=== PATIENT | female | born 1990 | race Caucasian/White ===

== ENCOUNTER 2017-03-28 09:22 | Emergency (ER) | payer BC, OTHER ==
[2017-03-28] MEDS ORDERED: SODIUM CHLORIDE 0.9% 1,000 ML IV STA (09:49)
[2017-03-28 10:04] LABS: Basophils % (A) 0 %; Eosinophils # (A) 0.1 k/uL (0-0.7); Eosinophils % (A) 1 %; HCT 37.8 % (34.0-46.0); Lymphocytes # (A) 1.9 k/uL (1.0-4.8); Lymphocytes % (A) 12 %; MCH 29.4 pg (25.0-35.0); MCHC 34.4 g/dL (31.0-37.0); MCV 85.7 fL (80.0-100.0); Mean Platelet Volume 6.8; Monocytes # (A) 0.6 k/uL (0-1.0); Monocytes % (A) 4 %; Neutrophils % (A) 83 %; Platelet Count 273 k/uL (150-450); RBC 4.41 m/uL (3.80-5.40); RDW 14.3 % (11.5-15.5); WBC 15.7 k/uL (3.8-10.6)
[2017-03-28 10:30] LABS: ALT 14 U/L (9-52); AST 20 U/L (14-36); Albumin 4.6 g/dL (3.5-5.0); Alkaline Phosphatase 85 U/L (38-126); Anion Gap 16 mmol/L; Blood Urea Nitrogen 4 mg/dL (7-17); Calcium 10.1 mg/dL (8.4-10.2); Carbon Dioxide 19 mmol/L (22-30); Chloride 105 mmol/L (98-107); Glucose 88 mg/dL (74-99); Potassium 3.8 mmol/L (3.5-5.1); Sodium 140 mmol/L (137-145); Total Bilirubin 0.5 mg/dL (0.2-1.3); Total Protein 7.7 g/dL (6.3-8.2)
--- NOTE | 2017-03-28 10:42 | US ---
EXAMINATION TYPE: US OB <= 14 wk fetus DATE OF EXAM: 03/28/2017 COMPARISON: NONE CLINICAL HISTORY: Pain. Left side pain started last night EXAM PERFORMED: Transabdominal (TA) EXAM MEASUREMENTS: GESTATIONAL AGE / DATING Dates by LMP: (10 weeks/0 days) EDC: 10/24/2017 Dates by Current Scan for: (10 weeks/2 days) EDC: 10/22/2017 MATERNAL ANATOMY Uterus: 13.7 x 7.8 x 6.1 cm Right Ovary: 2.6 x 1.6 x 1.4 cm Left Ovary: 8.2 x 6.8 x 5.5 cm Post CDS / Adnexa: No free fluid Presence of free fluid: no Presence of corpus luteal cyst: no Presence of subchorionic bleed: Yes, 9 mm. GESTATION / SURVEY CRL: 3.4 cm (10 weeks/2 days) MSD: seen, not measured Yolk Sac (normal less than 6mm): Not seen Heart Rate: 167 bpm Rhythm: Normal IUP: Viable IUP Date of LMP: 01/17/2017 Beta HcG (if available): Not available at this time Single live IUP measuring 10 weeks 2 days. Simple appearing cystic lesion seen in left ovary = 7.9 x 6.2 x 4.1 cm IMPRESSION: 1. Single live intrauterine with a sonographic age of 10 weeks and 2 days and estimated da te of delivery of 10/22/2017, concordant with menstrual age. 2. Small subchorionic hemorrhage occupying less than 25% of the gestational sac diameter. 3. Large 7.9 cm left ovarian cystic lesion that may represent a corpus luteum. Flow is seen to the pe riphery of the ovary at this time with no current evidence of ovarian torsion although the size of th is cystic lesion does predispose the patient to ovarian torsion.
[2017-03-28 10:59] LABS: Appearance,Urine Clear (Clear); Bilirubin,Urine Negative (Negative); Blood,Urine Negative (Negative); Color,Urine Colorless; Glucose,Urine (UA) Negative (Negative); Ketones,Urine 1+ (Negative); Leukocyte Esterase,Urine Negative (Negative); Nitrite,Urine Negative (Negative); Protein,Urine Negative (Negative); Specific Gravity,Urine 1.001 (1.001-1.035); Urobilinogen,Urine <2.0 mg/dL (<2.0)
--- NOTE | 2017-03-28 11:28 | ED ---
General Adult HPI - General Chief complaint: Abdominal Pain Stated complaint: Abd Pain-10 weeks preg Time Seen by Provider: 03/28/17 09:48 Source: patient, RN notes reviewed Mode of arrival: ambulatory Limitations: no limitations - History of Present Illness Initial comments: Patient 26-year-old female who is G2, P1 presented to the emergency room today with a chief complaint of increased left-sided flank pain. States that symptoms started yesterday. She doesn't that she's proximate 10 weeks . States has not had ultrasound yet in this . Patient states that she has pain starting yesterday in the afternoon slightly better at this time. Does admit some nausea vomiting. Denies any vaginal bleeding or discharge. Denies any other complaints or symptoms. Patient denies any recent fever, chills, shortness of breath, chest pain, numbness or tingling, dysuria or hematuria, constipation or diarrhea, headaches or visual changes, or any other complaints. - Related Data Home Medications Medication Instructions Recorded Confirmed Ukm-Ioak-Lvhkc Acid 1 cap PO DAILY 03/07/15 03/28/17 [-U Capsule] Allergies Allergy/AdvReac Type Severity Reaction Status Date / Time No Known Allergies Allergy Verified 03/28/17 09:40 Review of Systems ROS Statement: Those systems with pertinent positive or pertinent negative responses have been documented in the HPI. ROS Other: All systems not noted in ROS Statement are negative. Past Medical History Past Medical History: No Reported History Additional Past Medical History / Comment(s): History of PCOS History of Any Multi-Drug Resistant Organisms: None Reported Past Surgical History: No Surgical Hx Reported Additional Past Surgical History / Comment(s): [place] teeth removal Past Anesthesia/Blood Transfusion Reactions: No Reported Reaction Additional Past Anesthesia/Blood Transfusion Reaction / Comment(s): "crying" Past Psychological History: No Psychological Hx Reported Smoking Status: Never smoker Past Alcohol Use History: None Reported Past Drug Use History: None Reported - Past Family History Mother Family Medical History: Diabetes Mellitus General Exam - General Exam Comments Initial Comments: General: The patient is awake and alert, in no distress, and does not appear acutely ill. Eye: Pupils are equal, round and reactive to light, extra-ocular movements are intact. No nystagmus. There is normal conjunctiva bilaterally. No signs of icterus. Ears, nose, mouth and throat: There are moist mucous membranes and no oral lesions. Neck: The neck is supple, there is no tenderness or JVD. Cardiovascular: There is a regular rate and rhythm. No murmur, rub or gallop is appreciated. Respiratory: Lungs are clear to auscultation, respirations are non-labored, breath sounds are equal. No wheezes, stridor, rales, or rhonchi. Gastrointestinal: Soft, non-distended, non-tender abdomen without masses or organomegaly noted. There is no rebound or guarding present. No CVA tenderness. Bowel sounds are unremarkable. Musculoskeletal: Normal ROM, no tenderness. Strength 5/5. Sensation intact. Pulses equal bilaterally 2+. Neurological: A&O x 3. CN II-XII intact, There are no obvious motor or sensory deficits. Coordination appears grossly intact. Speech is normal. Skin: Skin is warm and dry and no rashes or lesions are noted. Psychiatric: Cooperative, appropriate mood & affect, normal judgment. Limitations: no limitations Course Vital Signs 03/28/17 09:31 Temperature 97.6 F Pulse Rate 92 Respiratory 22 Rate Blood Pressure 124/64 O2 Sat by Pulse 98 Oximetry Medical Decision Making - Medical Decision Making Patient also has been reviewed does show small subchorionic bleed. Does show single IUP measuring 10 weeks 2 days. Does show a 7.9 cm cyst on the left side. No evidence for torsion at this time. Patient's labs reviewed to show white count of 15,000. Has had multiple bouts of nausea vomiting. At this times comfortable. States pain is improved. She declined any pain medication. His discussed with attending physician . Patient will be discharged home to follow-up with her CHEMISTRY FACULTY MEMBER. She denies calling office today for an appointment. Advised return if any symptoms increase worsen or for any other concerns. - Lab Data Result diagrams: 03/28/17 09:45 03/28/17 09:45 Lab Results 03/28/17 03/28/17 03/28/17 Range/Units 09:45 09:45 09:45 WBC 15.7 H (3.8-10.6) k/uL RBC 4.41 (3.80-5.40) m/uL Hgb 13.0 (11.4-16.0) gm/dL Hct 37.8 (34.0-46.0) % MCV 85.7 (80.0-100.0) fL MCH 29.4 (25.0-35.0) pg MCHC 34.4 (31.0-37.0) g/dL RDW 14.3 (11.5-15.5) % Plt Count 273 (150-450) k/uL Neutrophils % 83 % Lymphocytes % 12 % Monocytes % 4 % Eosinophils % 1 % Basophils % 0 % Neutrophils # 13.0 H (1.3-7.7) k/uL Lymphocytes # 1.9 (1.0-4.8) k/uL Monocytes # 0.6 (0-1.0) k/uL Eosinophils # 0.1 (0-0.7) k/uL Basophils # 0.0 (0-0.2) k/uL Sodium 140 (137-145) mmol/L Potassium 3.8 (3.5-5.1) mmol/L Chloride 105 (98-107) mmol/L Carbon Dioxide 19 L (22-30) mmol/L Anion Gap 16 mmol/L BUN 4 L (7-17) mg/dL Creatinine 0.40 L (0.52-1.04) mg/dL Est GFR (MDRD) Af Amer >60 (>60 ml/min/1.73 sqM) Est GFR (MDRD) Non-Af >60 (>60 ml/min/1.73 sqM) Glucose 88 (74-99) mg/dL Calcium 10.1 (8.4-10.2) mg/dL Total Bilirubin 0.5 (0.2-1.3) mg/dL AST 20 (14-36) U/L ALT 14 (9-52) U/L Alkaline Phosphatase 85 (38-126) U/L Total Protein 7.7 (6.3-8.2) g/dL Albumin 4.6 (3.5-5.0) g/dL Urine Color Urine Appearance (Clear) Urine pH (5.0-8.0) Ur Specific [place] (1.001-1.035) Urine Protein (Negative) Urine Glucose (UA) (Negative) Urine Ketones (Negative) Urine Blood (Negative) Urine Nitrite (Negative) Urine Bilirubin (Negative) Urine Urobilinogen (<2.0) mg/dL Ur Leukocyte Esterase (Negative) Blood Type O Negative Blood Type Recheck No 03/28/17 Range/Units 10:30 WBC (3.8-10.6) k/uL RBC (3.80-5.40) m/uL Hgb (11.4-16.0) gm/dL Hct (34.0-46.0) % MCV (80.0-100.0) fL MCH (25.0-35.0) pg MCHC (31.0-37.0) g/dL RDW (11.5-15.5) % Plt Count (150-450) k/uL Neutrophils % % Lymphocytes % % Monocytes % % Eosinophils % % Basophils % % Neutrophils # (1.3-7.7) k/uL Lymphocytes # (1.0-4.8) k/uL Monocytes # (0-1.0) k/uL Eosinophils # (0-0.7) k/uL Basophils # (0-0.2) k/uL Sodium (137-145) mmol/L Potassium (3.5-5.1) mmol/L Chloride (98-107) mmol/L Carbon Dioxide (22-30) mmol/L Anion Gap mmol/L BUN (7-17) mg/dL Creatinine (0.52-1.04) mg/dL Est GFR (MDRD) Af Amer (>60 ml/min/1.73 sqM) Est GFR (MDRD) Non-Af (>60 ml/min/1.73 sqM) Glucose (74-99) mg/dL Calcium (8.4-10.2) mg/dL Total Bilirubin (0.2-1.3) mg/dL AST (14-36) U/L ALT (9-52) U/L Alkaline Phosphatase (38-126) U/L Total Protein (6.3-8.2) g/dL Albumin (3.5-5.0) g/dL Urine Color Colorless Urine Appearance Clear (Clear) Urine pH 6.0 (5.0-8.0) Ur Specific [place] 1.001 (1.001-1.035) Urine Protein Negative (Negative) Urine Glucose (UA) Negative (Negative) Urine Ketones 1+ H (Negative) Urine Blood Negative (Negative) Urine Nitrite Negative (Negative) Urine Bilirubin Negative (Negative) Urine Urobilinogen <2.0 (<2.0) mg/dL Ur Leukocyte Esterase Negative (Negative) Blood Type Blood Type Recheck Disposition Clinical Impression: , Left ovarian cyst Disposition: HOME SELF-CARE Condition: Good Instructions: Ovarian Cyst (ED) Additional Instructions: Please use medication as discussed. Please follow-up with CHEMISTRY FACULTY MEMBER/family doctor in the next 2 days. Please return to emergency room if the symptoms increase or worsen or for any other concerns. Referrals: Zacarias Martin MD [Primary Care Provider] - 1-2 days Sravanthi Donis DO [Doctor of Osteopathic Medicine] - 1-2 days Time of Disposition: 11:28
[2017-03-28 11:46] VITALS: BP 120/60; PULSE 77; RESP 18; TEMP 97.2
== END 2017-03-28 11:46 | disposition home or self-care (01) ==
LOC: EC 09:22
DX: O34.81 Maternal care for other abnormalities of pelvic organs, first trimester (principal); O20.8 Other hemorrhage in early pregnancy; O21.9 Vomiting of pregnancy, unspecified; Z3A.10 10 weeks gestation of pregnancy
CPT/HCPCS: 36415; 76801; 80053; 81003; 84702; 85025; 86900; 86901; 87086; 96360; 99284

== ENCOUNTER 2017-10-21 05:47 | Inpatient (IN) | payer BC ==
[2017-10-21] MEDS ORDERED: METHYLERGONOVINE 0.2 MG/ML 1 ML AMP IM PRN (05:55)
[2017-10-21] MEDS ORDERED: CARBOPROST TROMETHAMINE 250 MCG/ML 1 ML AMP IM PRN (05:55)
[2017-10-21] MEDS ORDERED: LIDOCAINE 1% (PF) 10 MG/ML (30 ML SDV) SQ PRN (05:55)
[2017-10-21] MEDS ORDERED: OXYTOCIN 10 UNIT/ML 1 ML VIAL IM PRN (05:55)
[2017-10-21] MEDS ORDERED: TERBUTALINE 1 MG/ML VIAL SQ PRN (05:55)
[2017-10-21] MEDS ORDERED: OXYTOCIN 20 UNITS/1000 ML NS 1,000 ML IV SCH ×2 (06:00→14:36)
[2017-10-21] MEDS: LACTATED RINGERS 1,000 ML IV SCH ×2 (06:11→12:57)
[2017-10-21 06:24] LABS: Basophils # (A) 0.1 k/uL (0-0.2); Basophils % (A) 0 %; Eosinophils # (A) 0.4 k/uL (0-0.7); Eosinophils % (A) 2 %; HCT 34.1 % (34.0-46.0); HGB 11.2 gm/dL (11.4-16.0); Lymphocytes # (A) 3.8 k/uL (1.0-4.8); Lymphocytes % (A) 18 %; MCH 26.6 pg (25.0-35.0); MCHC 32.8 g/dL (31.0-37.0); MCV 81.1 fL (80.0-100.0); Mean Platelet Volume 7.2; Monocytes % (A) 5 %; Neutrophils # (A) 15.5 k/uL (1.3-7.7); Neutrophils % (A) 74 %; Platelet Count 383 k/uL (150-450); RDW 14.6 % (11.5-15.5)
--- NOTE | 2017-10-21 08:23 | P.HPOB ---
History of Present Illness H&P Date: 10/21/17 Chief Complaint: Induction of labor This is a 27-year-old female 2 para 1 with an estimated date of confinement of 10/24/2017, estimated gestational age of 39-4/7 weeks, who presents to labor and delivery for induction of labor. She admits to good movement. She has been having irregular contractions. course is been uncomplicated other than she was diagnosed with a large left ovarian cyst early in the that has been stable. labs: Rubella-immune RPR-nonreactive Antibody screen-negative Hepatitis B surface antigen-negative Quad screen-negative Blood type-O- Group B streptococcus-negative Obstetrical history: . History of 1 vaginal delivery at term. Gynecologic history: No history of sexual transmitted diseases Review of Systems Constitutional: Denies chills, Denies fever Eyes: denies blurred vision, denies pain Cardiovascular: Denies chest pain, Denies shortness of breath Respiratory: Denies cough Genitourinary: Reports pelvic pain, Reports Musculoskeletal: Reports low back pain Integumentary: Denies pruritus, Denies rash Neurological: Denies numbness, Denies weakness Psychiatric: Denies anxiety, Denies depression Past Medical History Past Medical History: No Reported History Additional Past Medical History / Comment(s): History of PCOS History of Any Multi-Drug Resistant Organisms: None Reported Additional Past Surgical History / Comment(s): [place] teeth removal Past Anesthesia/Blood Transfusion Reactions: No Reported Reaction Additional Past Anesthesia/Blood Transfusion Reaction / Comment(s): "crying" Past Psychological History: No Psychological Hx Reported Smoking Status: Never smoker Past Alcohol Use History: None Reported Past Drug Use History: None Reported - Past Family History Mother Family Medical History: Diabetes Mellitus Medications and Allergies Home Medications Medication Instructions Recorded Confirmed Type Lgm-Bedi-Vsznq Acid 1 cap PO DAILY 03/07/15 10/21/17 History [-U Capsule] Allergies Allergy/AdvReac Type Severity Reaction Status Date / Time No Known Allergies Allergy Verified 10/21/17 05:54 Exam Osteopathic Statement: *. No significant issues noted on an osteopathic structural exam other than those noted in the History and Physical/Consult. Vital Signs Temp Pulse Resp BP Pulse Ox 10/21/17 06:00 96.9 F L 91 16 131/82 99 Intake and Output 10/20/17 10/21/17 10/21/17 22:59 06:59 14:59 Other: # Voids 1 Weight 80.286 kg HEENT: Within normal limits Heart: Regular rate and rhythm Lungs: Clear to auscultation bilaterally Abdomen: Cervix: 1-1/2 cm/70%/-2 station heart tones: Reactive Contractions: Irregular Extremities: Negative Homans Results Result Diagrams: 10/21/17 06:10 Abnormal Lab Results - Last 24 Hours (Table) 10/21/17 Range/Units 06:10 WBC 21.0 H (3.8-10.6) k/uL Hgb 11.2 L (11.4-16.0) gm/dL Neutrophils # 15.5 H (1.3-7.7) k/uL Assessment and Plan (1) 39 weeks gestation of Current Visit: Yes Status: Acute Code(s): Z3A.39 - 39 WEEKS GESTATION OF SNOMED Code(s): 79193290 Plan: Proceed with oxytocin induction of labor. Expectant management.
[2017-10-21] MEDS ORDERED: WITCH HAZEL 1 EACH MED..PAD TOPICAL PRN (14:36)
[2017-10-21] MEDS ORDERED: IBUPROFEN 600 MG TAB PO PRN (14:36)
[2017-10-21] MEDS ORDERED: ZOLPIDEM 5 MG TAB PO PRN (14:36)
[2017-10-21] MEDS ORDERED: HYDROCORTISONE 2.5% RECTAL CREAM 30 GM TUBE RECTAL PRN (14:36)
[2017-10-21] MEDS ORDERED: diphenhydrAMINE 25 MG CAP PO PRN (14:36)
[2017-10-21] MEDS ORDERED: ACETAMINOPHEN TAB 325 MG TAB PO PRN (14:36)
[2017-10-21] MEDS ORDERED: diphenhydrAMINE 50 MG/ML 1 ML VIAL IVP PRN ×2 (14:36)
[2017-10-21] MEDS ORDERED: SIMETHICONE 80 MG CHEWABLE PO PRN (14:36)
[2017-10-21] MEDS ORDERED: diphenhydrAMINE 50 MG CAP PO PRN (14:36)
[2017-10-21] MEDS ORDERED: LANOLIN CREAM 5 GM TUBE TOPICAL PRN (14:36)
[2017-10-21] MEDS ORDERED: BENZOCAINE/MENTHOL SPRAY 1 GM/SPRAY AEROSOL TOPICAL PRN (14:36)
--- NOTE | 2017-10-21 17:01 | P.PROBDLV ---
Vaginal Delivery Note - . Vaginal Delivery Note: The patient progressed to complete dilation after oxytocin induction of labor and artificial rupture membranes with clear fluid noted. Once reaching complete dilation, she began pushing. Infant's head came to a crown. With one further push, the 's head delivered across the perineum followed by the anterior shoulder. She was unable to stop pushing and the remainder the easily delivered and was placed on mother's abdomen. A body cord 1 was reduced around the body with delivery. Nose and mouth were bulb suctioned after delivery and cord was clamped and cut. was taken to warmer for evaluation. A viable male is noted with scores of 8 at 1 minute and 9 at 5 minutes and weight of 6 lbs. 3 oz. Placenta delivered shortly thereafter, intact, with a three-vessel cord. Also cord blood was obtained. Uterus contracted well after oxytocin was given and uterine massage was carried out. Inspection of the perineum revealed no lacerations that some small abrasions bilateral periurethrally. Estimated blood loss is approximately 100 mL's. Both mother and infant are in stable condition.
[2017-10-21] MEDS: SENNOSIDES-DOCUSATE SODIUM 1 EACH TAB PO SCH (20:11)
[2017-10-21] MEDS ORDERED: Rhogam IMMUNE GLOBULIN 1,500 UNIT/1 ML IM ONE (20:12)
[2017-10-22 05:57] LABS: Basophils # (A) 0.1 k/uL (0-0.2); Basophils % (A) 0 %; Eosinophils # (A) 0.2 k/uL (0-0.7); Eosinophils % (A) 1 %; HCT 33.4 % (34.0-46.0); HGB 10.7 gm/dL (11.4-16.0); Lymphocytes # (A) 2.2 k/uL (1.0-4.8); Lymphocytes % (A) 9 %; MCH 26.6 pg (25.0-35.0); MCV 82.9 fL (80.0-100.0); Mean Platelet Volume 6.6; Monocytes % (A) 4 %; Neutrophils # (A) 20.1 k/uL (1.3-7.7); Neutrophils % (A) 85 %; Platelet Count 311 k/uL (150-450); RBC 4.03 m/uL (3.80-5.40); RDW 14.9 % (11.5-15.5); WBC 23.6 k/uL (3.8-10.6)
[2017-10-22] MEDS: SENNOSIDES-DOCUSATE SODIUM 1 EACH TAB PO SCH (07:34)
[2017-10-22 07:54] VITALS: BP 106/56; PULSE 66; RESP 18; TEMP 98.4
--- NOTE | 2017-10-22 08:51 | P.DS ---
Providers Date of admission: 10/21/17 05:47 Expected date of discharge: 10/22/17 Attending physician: Sravanthi Donis Primary care physician: Stated None - Discharge Diagnosis(es) (1) 39 weeks gestation of Current Visit: Yes Status: Acute Hospital Course: This is a 27-year-old female 2 para 1 at 39-4/7 weeks who presented for induction of labor. She underwent oxytocin induction of labor and delivered vaginally a viable male with scores of 8 at 1 minute and 9 at 5 minutes and infant weight of 6 lbs. 3 oz. Her course has been uncomplicated. Lochia is decreasing. She is not taking anything for pain. Vital signs are stable. Abdomen is soft with fundus firm and nontender. Extremities show negative Homans. Impression is status post vaginal delivery day #1. Plan is to discharge home today. Routine instructions are given. She declines a need for any pain medication. She is bottle feeding. She is advised to follow up in the office in 6 weeks for check. She is advised to call the office if she has any further questions or concerns prior to her appointment time. Procedures: Oxytocin induction of labor Spontaneous vaginal delivery of a viable male infant on 10/21/2017 Patient Condition at Discharge: Stable Plan - Discharge Summary New Discharge Prescriptions: Continue Inc-Voqd-Exhmz Acid [-U Capsule (formulary)] 1 cap PO DAILY Discharge Medication List Lfw-Xkzg-Ymlfg Acid [-U Capsule (formulary)] 1 cap PO DAILY 02/08 [History] Follow up Appointment(s)/Referral(s): Sravanthi Donis DO [Doctor of Osteopathic Medicine] - 6 Weeks Activity/Diet/Wound Care/Special Instructions: Instructions 1. Do not begin any exercise program for 3 weeks. 2. Do not resume sexual relations for 3 weeks or longer if uncomfortable. 3. You may take tub baths or showers at any time. 4. You may use tampons if desired after 3 weeks. 5. Keep the area of episiotomy (stitches) clean and dry. 6. If you are not nursing, wear a good fitting, supportive bra during the day and limit fluid intake for at least 1 week to prevent breast engorgement. 7. Call the office, [phone], within the next week to make appointment for your 6 week checkup if it has not already been made. 8. Report any of the following occurrences to the doctor promptly: a. Heavy, excessive bleeding b. Chills, fever c. Burning or frequency of urination d. Pain or redness and breasts if nursing e. Increasing pain or swelling in episiotomy (stitches). In addition to the above instructions, the following additional should be followed: 1. No heavy lifting or straining (exercising) until after 6 week checkup. 2. Keep abdominal incision clean and dry: You may wear a dressing if more comfortable. 3. Make office appointment for 10 days after going home or as instructed by her doctor. Discharge Disposition: HOME SELF-CARE
== END 2017-10-22 14:49 | disposition home or self-care (01) | DRG 775 ==
LOC: 4FBP 05:47
PROVIDERS: ADMIT Obstetrics & Gynecology; ATTEND Obstetrics & Gynecology
PROC: 10E0XZZ Delivery of Products of Conception, External Approach (ICD-10-PCS; principal; 2017-10-21)
PROC: 10907ZC Drainage of Amniotic Fluid, Therapeutic from Products of Conception, Via Natural or Artificial Opening (ICD-10-PCS; 2017-10-21)
PROC: 3E033VJ Introduction of Other Hormone into Peripheral Vein, Percutaneous Approach (ICD-10-PCS; 2017-10-21)
DX: O34.83 Maternal care for other abnormalities of pelvic organs, third trimester (principal); Z37.0 Single live birth; E28.2 Polycystic ovarian syndrome; Z3A.39 39 weeks gestation of pregnancy; Z83.3 Family history of diabetes mellitus
CPT/HCPCS: 85025; 85461

== ENCOUNTER 2019-08-10 05:58 | Inpatient (IN) | payer OTHER, BC ==
--- NOTE | 2019-08-09 19:12 | P.HPOB ---
History of Present Illness H&P Date: 08/09/19 Chief Complaint: Induction of labor This is a 29 y.o. female, 3, para 2, with an estimated date of confinement of 08/12/2019, estimated gestational age of 39-5/7 weeks, who presents for induction of labor. She has frequent contractions and pressure. She has good movement. has been uncomplicated. labs: Heapatitis B surface antigen-neg RPR-NR Rubella-immune Blood type-O neg Antibody screen-neg Hemoglobin-11.3 Random glucose-78 Quad screen-neg 1 hr. GTT-78 Rhogam-given at 28 weeks GBS-neg OB Hx: . 2 vaginal deliveries Financial Planner Hx: No hx STDs Social Hx: . 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 Review of Systems Constitutional: Denies chills, Denies fever Eyes: denies blurred vision, denies pain Ears, nose, mouth and throat: Denies headache, Denies sore throat Cardiovascular: Denies chest pain, Denies shortness of breath Respiratory: Denies cough Gastrointestinal: Reports abdominal pain (irregular contractions) Genitourinary: Reports pelvic pain, Reports Musculoskeletal: Reports low back pain Integumentary: Denies pruritus, Denies rash Neurological: Denies numbness, Denies weakness Psychiatric: Denies anxiety, Denies depression Past Medical History Past Medical History: No Reported History Additional Past Medical History / Comment(s): History of PCOS History of Any Multi-Drug Resistant Organisms: None Reported Past Surgical History: No Surgical Hx Reported Additional Past Surgical History / Comment(s): [place] teeth removal Past Anesthesia/Blood Transfusion Reactions: No Reported Reaction Additional Past Anesthesia/Blood Transfusion Reaction / Comment(s): "crying" Past Psychological History: No Psychological Hx Reported Smoking Status: Never smoker Past Alcohol Use History: None Reported Past Drug Use History: None Reported - Past Family History Mother Family Medical History: Diabetes Mellitus Medications and Allergies Home Medications Medication Instructions Recorded Confirmed Type Iiw-Ibqi-Ebigx Acid 1 cap PO DAILY 03/07/15 10/21/17 History [-U Capsule (formulary)] Allergies Allergy/AdvReac Type Severity Reaction Status Date / Time No Known Allergies Allergy Verified 10/21/17 05:54 Exam Osteopathic Statement: *. No significant issues noted on an osteopathic structural exam other than those noted in the History and Physical/Consult. HEENT: within normal limits Heart: regular rate and rhythm Lungs: clear to auscultation bilaterally Abdomen: Cervix: 4 cm/70%/-3 heart tones: 140's by doppler Extremities: neg Karla's Assessment and Plan (1) Rh negative status during Status: Acute Code(s): O26.899 - OTH RELATED CONDITIONS, UNSPECIFIED TRIMESTER; Z67.91 - UNSPECIFIED BLOOD TYPE, RH NEGATIVE SNOMED Code(s): 111627214 (2) 39 weeks gestation of Status: Acute Code(s): Z3A.39 - 39 WEEKS GESTATION OF SNOMED Code(s): 82422000 Plan: Proceed with oxytocin induction of labor. Expectant management. Epidural anesthesia if desired.
[2019-08-10] MEDS: LACTATED RINGERS 1,000 ML IV SCH ×2 (06:10→17:06)
[2019-08-10] MEDS ORDERED: OXYTOCIN 30 UNITS/500 ML NS 30 UNIT in SALINE 1 500ML.BAG IV SCH (06:15)
[2019-08-10] MEDS ORDERED: LIDOCAINE 1% (10MG/ML) FOR IV START INTRADERMA PRN (06:15)
[2019-08-10] MEDS ORDERED: METHYLERGONOVINE 0.2 MG/ML 1 ML AMP IM PRN (06:15)
[2019-08-10] MEDS ORDERED: LIDOCAINE 0.5% (PF) 5 MG/ML (50 ML SDV) SQ PRN (06:15)
[2019-08-10] MEDS ORDERED: TERBUTALINE 1 MG/ML VIAL SQ PRN (06:15)
[2019-08-10] MEDS ORDERED: OXYTOCIN 10 UNIT/ML 1 ML VIAL IM PRN (06:15)
[2019-08-10] MEDS ORDERED: CARBOPROST TROMETHAMINE 250 MCG/ML 1 ML AMP IM PRN (06:15)
[2019-08-10 07:58] LABS: Anisocytosis Slight; Basophils % (A) 0 %; Eosinophils # (A) 0.2 k/uL (0-0.7); Eosinophils % (A) 1 %; HCT 32.1 % (34.0-46.0); HGB 10.4 gm/dL (11.4-16.0); Hypochromasia Moderate; Lymphocytes % (A) 14 %; MCH 24.6 pg (25.0-35.0); MCHC 32.3 g/dL (31.0-37.0); MCV 76.1 fL (80.0-100.0); Mean Platelet Volume 7.9; Microcytosis Slight; Monocytes # (A) 0.6 k/uL (0-1.0); Monocytes % (A) 4 %; Neutrophils # (A) 11.5 k/uL (1.3-7.7); Neutrophils % (A) 80 %; Platelet Count 316 k/uL (150-450); RBC 4.22 m/uL (3.80-5.40); RDW 16.2 % (11.5-15.5); WBC 14.4 k/uL (3.8-10.6)
[2019-08-10] MEDS ORDERED: PROPOFOL 10 MG/ML 20 ML VIAL IV ONE (10:41)
[2019-08-10] MEDS ORDERED: ONDANSETRON 4 MG/2 ML VIAL ONE (10:41)
[2019-08-10] MEDS ORDERED: HYDROmorphone (PF) 1 MG/ML ONE (10:41)
[2019-08-10] MEDS ORDERED: DEXAMETHASONE SOD PHOSPHATE 10 MG/ML 1 ML VIAL ONE (10:41)
[2019-08-10] MEDS ORDERED: fentaNYL (PF) 50 MCG/ML 2 ML AMP ONE (10:41)
[2019-08-10] MEDS ORDERED: KETOROLAC 30 MG/ML 1 ML VIAL ONE (10:41)
--- NOTE | 2019-08-10 11:26 | P.OP ---
Date of Procedure: 08/10/19 Preoperative Diagnosis: 1. Intrauterine at 39-5/7 weeks. 2. Cord prolapse. Postoperative Diagnosis: Same Procedure(s) Performed: Primary low transverse section Anesthesia: TRACY Surgeon: Sravanthi Donis Dial Screw Assembler #1: Renetta Diaz Estimated Blood Loss (ml): 200 Pathology: none sent Condition: stable Disposition: floor Indications for Procedure: This is a 29-year-old female 3 para 2 at 39-5/7 weeks who presented for induction of labor. At the start of her labor she was noted to be 5 cm and -2 station. With artificial rupture membranes this morning clear fluid was noted and I kept my hand in place throughout the rupture membranes to make sure the head settled into place. No cord prolapse was noted at that time. As she progressed into labor she became 5-6 cm and when the nurse went to check her she felt a loop of cord in the vagina. She immediately called for help and kept her hand in place to push the head off the cord. When I arrived to the unit, heart tones were still normal I placed my gloved hand into the vagina as a nurse removed hers and palpated to see if there was enough room for the patient to push around the cord prolapse however she was still only noted to be 5-6 and not stretchy enough. The nurse replaced her gloved hand and kept pressure on the head while we rolled the bed to the back for section. I have discussed the risks, benefits, and alternative therapies for the above- mentioned procedure and for both sedation/anesthesia as well as necessary blood products administration, if indicated, as they pertain to this patient. The patient has indicated her understanding and acceptance of the risks and procedures discussed. Operative Findings: A viable male is noted with scores of 8 at 1 minute and 9 at 5 minutes and weight of 7 lbs. 2 oz. No nuchal cord was noted. The loop of cord was next to the head with delivery. Normal uterus and tubes were noted. The left ovary did have a small soft cyst noted. Bovie cautery was used to enter into the cyst and clear fluid was drained. The cyst did resolve. Right ovary appeared normal. Description of Procedure: The patient is taken to the operating room where she is placed in the dorsal supine position with leftward tilt. Nurse continue to stay on the table with her gloved hand in the vagina pushing the head up. She is prepped and draped in the normal sterile fashion. General anesthesia was given. A Pfannenstiel skin incision was made with a scalpel. A second knife was used to carry the incision down to the underlying layer of fascia. The fascia was nicked in the midline with a scalpel and then extended laterally bilaterally with Black scissors. The anterior lip of the fascia was grasped with 2 Osei clamps and then dissected off the underlying rectus muscle in the midline with Black scissors. The inferior aspect of the fascial incision was grasped with 2 Osei clamps and dissected off the underlying rectus muscle and the midline with Black scissors. Next the peritoneum layer was tented up with 2 hemostats and then entered sharply with the scalpel. The incision is extended superiorly and inferiorly with Metzenbaum scissors. Next a DeLee retractor is placed. The vesicouterine peritoneum is entered sharply with Metzenbaum scissors and extended laterally bilaterally with Metzenbaum scissors and then the bladder flap is pushed inferiorly. The lower uterine segment is incised in transverse fashion with the scalpel and then bluntly entered with a hemostat. Clear fluid is noted. The incision was then extended laterally bilaterally with 2 fingers. Next the 's head is delivered through the incision. Nose and mouth are bulb suctioned. The remainder of the infant is easily delivered and placed on mo ther's abdomen. Cord is clamped and cut. Infant is taken to warmer by nursing staff. Cord blood is obtained secondary to Rh- status. Uterine fundus is gently massaged and placenta is delivered manually. Uterus is exteriorized and cleared of all clots and debris. Uterine incision is closed with 0 Vicryl suture in a running locked fashion. A second layer of 0 Vicryl suture is used in a running fashion for hemostasis. Once adequate hemostasis as assured, the vesicouterine peritoneum is reapproximated with 2-0 Vicryl suture in a running fashion. Posterior cul-de-sac is suctioned of all clots and debris. Inspection of the ovaries did show the left ovary did have a approximately 3-4 cm soft simple-appearing cyst. This was opened up with Bovie cautery and clear fluid was drained. Excellent hemostasis was noted. Uterus is returned to the abdomen. Incision is noted to be hemostatic. Peritoneal layer is closed with 0 Vicryl suture in a running fashion. Muscle layer is reapproximated with 0 Vicryl suture in interrupted fashion. Fascia layer is then closed with 0 PDS suture with 2 sutures meeting in the midline and the knots buried in either side and in the midline. The subcutaneous tissue was then closed with 2-0 Vicryl suture. Skin layer was then closed with sue. All sponge and needle counts are correct. The patient is taken to recovery room in stable condition.
[2019-08-10] MEDS ORDERED: HYDROcodone/APAP 5-325MG 1 EACH TAB PO PRN (11:29)
[2019-08-10] MEDS ORDERED: HYDROcodone/APAP 7.5-325MG 1 EACH TAB PO PRN (11:29)
[2019-08-10] MEDS ORDERED: diphenhydrAMINE 50 MG CAP PO PRN ×2 (11:29)
[2019-08-10] MEDS ORDERED: diphenhydrAMINE 50 MG/ML 1 ML VIAL IVP PRN ×4 (11:29)
[2019-08-10] MEDS ORDERED: ACETAMINOPHEN TAB 325 MG TAB PO PRN (11:29)
[2019-08-10] MEDS ORDERED: ZOLPIDEM 5 MG TAB PO PRN (11:29)
[2019-08-10] MEDS ORDERED: OXYTOCIN 20 UNITS/1000 ML NS 1,000 ML IV SCH (11:29)
[2019-08-10] MEDS ORDERED: HYDROCORTISONE 2.5% RECTAL CREAM 30 GM TUBE RECTAL PRN (11:29)
[2019-08-10] MEDS ORDERED: METOCLOPRAMIDE 5 MG/ML 2 ML VIAL IVP PRN (11:29)
[2019-08-10] MEDS ORDERED: NALOXONE 0.4 MG/ML 1 ML VIAL IV PRN (11:29)
[2019-08-10] MEDS ORDERED: KETOROLAC 30 MG/ML 1 ML VIAL IVP PRN (11:29)
[2019-08-10] MEDS ORDERED: WITCH HAZEL 1 EACH MED..PAD TOPICAL PRN (11:29)
[2019-08-10] MEDS ORDERED: LANOLIN CREAM 5 GM TUBE TOPICAL PRN (11:29)
[2019-08-10] MEDS ORDERED: diphenhydrAMINE 25 MG CAP PO PRN ×2 (11:29)
[2019-08-10] MEDS ORDERED: ONDANSETRON 4 MG/2 ML VIAL IVP PRN (11:29)
[2019-08-10] MEDS ORDERED: Rhogam IMMUNE GLOBULIN 1,500 UNIT/1 ML IM ONE (18:59)
[2019-08-10] MEDS: SENNOSIDES-DOCUSATE SODIUM 1 EACH TAB PO SCH (20:29)
[2019-08-11 07:59] LABS: Anisocytosis Slight; Basophils % (A) 0 %; Eosinophils # (A) 0.1 k/uL (0-0.7); Eosinophils % (A) 1 %; HCT 27.1 % (34.0-46.0); Hypochromasia Moderate; Lymphocytes # (A) 2.3 k/uL (1.0-4.8); Lymphocytes % (A) 12 %; MCH 24.2 pg (25.0-35.0); MCHC 31.9 g/dL (31.0-37.0); MCV 76.1 fL (80.0-100.0); Mean Platelet Volume 7.4; Microcytosis Slight; Monocytes # (A) 0.9 k/uL (0-1.0); Monocytes % (A) 5 %; Neutrophils # (A) 15.5 k/uL (1.3-7.7); Neutrophils % (A) 82 %; Platelet Count 295 k/uL (150-450); RBC 3.57 m/uL (3.80-5.40); RDW 16.7 % (11.5-15.5)
[2019-08-11 08:07] LABS: HGB 8.6 gm/dL (11.4-16.0)
[2019-08-11] MEDS: SENNOSIDES-DOCUSATE SODIUM 1 EACH TAB PO SCH ×2 (08:20→20:01)
[2019-08-11] MEDS: IBUPROFEN 600 MG TAB PO PRN ×2 (11:44→20:01)
--- NOTE | 2019-08-11 12:20 | P.PNOBGPC ---
Subjective - Subjective Principal diagnosis: Status post primary section postoperative day #1 Interval history: Patient is doing well. Her pain is fairly well controlled with ibuprofen. She is ambulating the halls. She has urinated. She is bottle feeding. She has not passed flatus or bowel movement yet. Patient reports: Reports appetite normal, Reports voiding normally, Reports pain well controlled, Reports ambulating normally : doing well, bottle feeding Objective - Vital Signs Latest vital signs: Vital Signs Temp Pulse Resp BP Pulse Ox 08/11/19 11:38 98.5 F 101 H 18 118/69 08/11/19 08:00 98.1 F 85 16 110/72 08/11/19 04:00 98.2 F 66 18 102/62 98 08/11/19 00:00 98.5 F 74 16 124/74 98 08/10/19 19:45 98.8 F 74 16 101/61 98 08/10/19 16:00 97.6 F 81 18 122/70 08/10/19 13:30 98.3 F 75 15 118/67 08/10/19 13:00 83 15 141/72 08/10/19 12:30 77 16 128/77 Intake and Output 08/10/19 08/11/19 08/11/19 22:59 06:59 14:59 Intake Total 600 Output Total 2150 600 Balance -2150 0 Intake: Oral 600 Output: Urine 2150 600 Uretheral (Herrera) 1800 Other: # Voids 2 1 - Exam Extremities: Present: normal. Absent: tenderness Abdomen: Present: normal appearance, soft (Faint bowel sounds 4). Absent: tenderness Incision: Present: normal, dry, intact. Absent: erythematous Uterus: Present: normal, firm. Absent: tenderness - Labs Labs: Abnormal Lab Results - Last 24 Hours (Table) 08/11/19 Range/Units 07:24 WBC 19.0 H (3.8-10.6) k/uL RBC 3.57 L (3.80-5.40) m/uL Hgb 8.6 L D (11.4-16.0) gm/dL Hct 27.1 L (34.0-46.0) % MCV 76.1 L (80.0-100.0) fL MCH 24.2 L (25.0-35.0) pg RDW 16.7 H (11.5-15.5) % Neutrophils # 15.5 H (1.3-7.7) k/uL Assessment and Plan Assessment: Status post primary section for cord prolapse postoperative day #1 (1) Rh negative status during Current Visit: No Status: Acute Code(s): O26.899 - OTH RELATED CONDITIONS, UNSPECIFIED TRIMESTER; Z67.91 - UNSPECIFIED BLOOD TYPE, RH NEGATIVE SNOMED Code(s): 286946502 (2) 39 weeks gestation of Current Visit: No Status: Acute Code(s): Z3A.39 - 39 WEEKS GESTATION OF SNOMED Code(s): 06519111 Plan: Continue with postoperative care today. As long as she is passing flatus and her pain is well-controlled, may be able to be discharged tomorrow. Patient is encouraged to ambulate.
[2019-08-11] MEDS: SIMETHICONE 80 MG CHEWABLE PO PRN ×2 (15:35→18:25)
[2019-08-12] MEDS: IBUPROFEN 600 MG TAB PO PRN (04:38)
[2019-08-12 06:19] LABS: Anisocytosis Slight; Basophils % (A) 0 %; Eosinophils # (A) 0.2 k/uL (0-0.7); Eosinophils % (A) 1 %; HCT 28.3 % (34.0-46.0); HGB 9.1 gm/dL (11.4-16.0); Hypochromasia Marked; Lymphocytes # (A) 1.8 k/uL (1.0-4.8); Lymphocytes % (A) 14 %; MCH 24.6 pg (25.0-35.0); MCV 76.9 fL (80.0-100.0); Mean Platelet Volume 6.8; Microcytosis Slight; Monocytes # (A) 0.8 k/uL (0-1.0); Monocytes % (A) 6 %; Neutrophils # (A) 10.2 k/uL (1.3-7.7); Neutrophils % (A) 78 %; Platelet Count 301 k/uL (150-450); RBC 3.68 m/uL (3.80-5.40); RDW 16.6 % (11.5-15.5); WBC 13.2 k/uL (3.8-10.6)
[2019-08-12] MEDS: SENNOSIDES-DOCUSATE SODIUM 1 EACH TAB PO SCH (08:00)
[2019-08-12 08:34] VITALS: BP 121/79; PULSE 115; RESP 20; TEMP 98.2
--- NOTE | 2019-08-12 08:48 | P.DS ---
Providers Date of admission: 08/10/19 05:58 Expected date of discharge: 08/12/19 Attending physician: Sravanthi Donis Primary care physician: Stated None - Discharge Diagnosis(es) (1) Rh negative status during Current Visit: No Status: Acute (2) 39 weeks gestation of Current Visit: No Status: Acute Hospital Course: This is a 29-year-old female 3 para 2 at 39-5/7 weeks who presented for induction of labor. She reached approximate 5-1/2 cm and during a vaginal check was noted to have a cord prolapse. The emergency section was called and she delivered a viable male infant with scores of 8 at 1 minute and 9 at 5 minutes and weight of 7 lbs. 2 oz. on 08/10/2019 via emergency section under general anesthesia. Postoperatively she has done well. Lochia is decreasing. Her pain is well-controlled. She is passing flatus and b owel movement. She is bottle feeding. Vital signs are stable. Abdomen is soft with positive bowel sounds 4. Incision is clean dry and intact with sue in place. Extremities show negative Homans. Impression is status post primary section postoperative day #2. Plan is to discharge home today. Routine postoperative and instructions are given. [place] will be removed and Steri-Strips placed prior to discharge. She will be given a prescription for ibuprofen. She declines any narcotic prescription. She is advised follow-up in the office in 1 week for a postoperative check and in 6 weeks for a check. Procedures: Oxytocin induction of labor Emergency primary low transverse section on 08/10/2019 Patient Condition at Discharge: Stable Plan - Discharge Summary New Discharge Prescriptions: New Ibuprofen [Motrin] 600 mg PO Q6HR PRN #60 tab PRN Reason: Mild Pain Or Fever >= 100.5 Continue Mur-Dqcx-Xbroy Acid [-U Capsule (formulary)] 1 cap PO DAILY Discharge Medication List Oef-Pbdw-Zptuy Acid [-U Capsule (formulary)] 1 cap PO DAILY 03/07/15 [History] Ibuprofen [Motrin] 600 mg PO Q6HR PRN #60 tab 08/12/19 [Rx] Follow up Appointment(s)/Referral(s): Sravanthi Donis DO [Doctor of Osteopathic Medicine] - 1 Week Activity/Diet/Wound Care/Special Instructions: Instructions 1. Do not begin any exercise program for 3 weeks. 2. Do not resume sexual relations for 3 weeks or longer if uncomfortable. 3. You may take tub baths or showers at any time. 4. You may use tampons if desired after 3 weeks. 5. Keep the area of episiotomy (stitches) clean and dry. 6. If you are not nursing, wear a good fitting, supportive bra during the day and limit fluid intake for at least 1 week to prevent breast engorgement. 7. Call the office, [phone], within the next week to make appointment for your 6 week checkup if it has not already been made. 8. Report any of the following occurrences to the doctor promptly: a. Heavy, excessive bleeding b. Chills, fever c. Burning or frequency of urination d. Pain or redness and breasts if nursing e. Increasing pain or swelling in episiotomy (stitches). In addition to the above instructions, the following additional should be followed: 1. No heavy lifting or straining (exercising) until after 6 week checkup. 2. Keep abdominal incision clean and dry: You may wear a dressing if more comfortable. 3. Make office appointment for 10 days after going home or as instructed by her doctor. Discharge Disposition: HOME SELF-CARE
== END 2019-08-12 10:25 | disposition home or self-care (01) | DRG 788 ==
LOC: 4FBP 05:58
PROVIDERS: ADMIT Obstetrics & Gynecology; ATTEND Obstetrics & Gynecology
PROC: 10D00Z1 Extraction of Products of Conception, Low, Open Approach (ICD-10-PCS; principal; 2019-08-10 10:48)
PROC: 3E033VJ Introduction of Other Hormone into Peripheral Vein, Percutaneous Approach (ICD-10-PCS; principal; 2019-08-10 10:48)
PROC: 10907ZC Drainage of Amniotic Fluid, Therapeutic from Products of Conception, Via Natural or Artificial Opening (ICD-10-PCS; principal; 2019-08-10 10:48)
DX: O26.893 Other specified pregnancy related conditions, third trimester (principal); O69.0XX0 Labor and delivery complicated by prolapse of cord, not applicable or unspecified; O99.89 Other specified diseases and conditions complicating pregnancy, childbirth and the puerperium; E28.2 Polycystic ovarian syndrome; Z37.0 Single live birth; Z3A.39 39 weeks gestation of pregnancy; Z67.41 Type O blood, Rh negative; Z83.3 Family history of diabetes mellitus
CPT/HCPCS: 85025; 85461; 86850; 86870; 86880; 86900; 86901

== ENCOUNTER → 2022-01-10 | Outpatient (CLI) | payer OTHER ==
--- NOTE | 2022-01-11 07:51 | US ---
EXAMINATION TYPE: US pelvic complete DATE OF EXAM: 01/10/2022 COMPARISON: 03/28/2017 CLINICAL HISTORY: N94.6 dysmenorrhea, N92.3 intermenstrual bleeding. TECHNIQUE: Transabdominal (TA). Transabdominal sonographic images of the pelvis were acquired. Tra nsvaginal sonographic images were medically necessary to better assess the following anatomy: EXAM MEASUREMENTS: Uterus: 8.0 x 4.2 by 5.3 cm Endometrial Stripe: 1.5 cm Right Ovary: 2.2 x 2.4 x 1.5 cm Left Ovary: 4.2 x 4.7 x 2.6 cm 1. Uterus: No evidence of masses. 2. Endometrium: Within normal limits for thickness 3. Right Ovary: Follicle changes 4. Left Ovary: Cyst measuring up to 2.4 cm 5. Bilateral Adnexa: No adnexal masses. 6. Posterior cul-de-sac: No significant free fluid. IMPRESSION: 1. No evidence for acute process. 2. Endometrium within normal limits for thickness.
== END | disposition home or self-care (01) ==
LOC: RADUSWWP 16:15
PROVIDERS: ATTEND Obstetrics & Gynecology
DX: N94.6 Dysmenorrhea, unspecified (principal); N92.3 Ovulation bleeding
CPT/HCPCS: 76856